=== PATIENT | female | born 1935 | race Caucasian/White ===

== ENCOUNTER 2016-05-15 14:02 | Observation (INO) | payer BC, MEDICARE ==
--- NOTE | 2016-05-15 15:00 | RAD ---
HISTORY: Expressive aphasia COMPARISONS: None TECHNIQUE: Multiple contiguous axial CT scans were obtained of the head without intravenous contrast. FINDINGS: HEMORRHAGE/INFARCT: There is no hemorrhage or acute infarct. MASSES/SHIFT: There is no mass or shift. EXTRA-AXIAL SPACES: There are no extra-axial fluid collections. SULCI AND VENTRICLES: The sulci and ventricles are normal in size and position for the patient's stated age. CEREBRUM: There is hypoattenuation of the periventricular and subcortical white matter. BRAINSTEM: There are no focal parenchymal abnormalities. CEREBELLUM: There is a chronic appearing lacunar infarct of the right cerebellar hemisphere VESSELS: The vessels are grossly normal. PARANASAL SINUSES: The paranasal sinuses are clear. ORBITS: The orbits are unremarkable. BONES AND SOFT TISSUE: No bone or soft tissue abnormalities are noted. OTHER: None IMPRESSION: NO ACUTE INTRACRANIAL PATHOLOGY. CHRONIC SMALL VESSEL ISCHEMIC CHANGES.
[2016-05-15 15:10] LABS: Hematocrit 40 % (35-47); Hemoglobin 13.2 g/dl (12.0-16.0); Mean Corpuscular HGB Conc 33 g/dl (31-36); Mean Corpuscular Hemoglobin 29 pg (27-31); Mean Corpuscular Volume 89 fL (80-97); Mean Platelet Volume 9 um3 (7.4-10.4); Red Blood Count 4.56 10^6/ul (4.0-5.4); Red Cell Distribution Width 14 % (10.5-15); White Blood Count 15.3 10^3/ul (3.5-10.8)
[2016-05-15 15:27] LABS: Troponin I 0.01 ng/mL (<0.04)
[2016-05-15 15:30] LABS: Albumin 3.9 g/dL (3.2-5.2); BUN/Creatinine Ratio 20.3 (8-20); Calcium 9.6 mg/dL (8.6-10.3); EGFR African American 49.1 (>60); EGFR Non-African American 38.2 (>60); Globulin 3.4 g/dL (2-4); Potassium 4.3 mmol/L (3.5-5.0); Total Bilirubin 0.3 mg/dL (0.2-1.0); Total Protein 7.3 g/dL (6.4-8.9)
[2016-05-15] MEDS ORDERED: Dextrose 50% Syringe 50 ML* 25 GM/50 ML SYRINGE IV PUSH PRN (17:23)
[2016-05-15] MEDS ORDERED: NS 0.9% 1000 ML* 1,000 ML IV SCH (17:30)
[2016-05-15 17:55] LABS: HDL Cholesterol 62.1 mg/dL
[2016-05-15] MEDS ORDERED: Latanoprost 0.005%* 2.5 ml BTL RIGHT EYE SCH (18:00)
[2016-05-15] MEDS: Clopidogrel TAB* 75 MG PO SCH (19:00)
--- NOTE | 2016-05-15 19:39 | RAD ---
INDICATION: Carotid stenosis. COMPARISON: There are no prior studies available for comparison. TECHNIQUE: Multiple grayscale, color and Doppler tracings of the common, internal and external carotid and vertebral arteries were obtained. Stenosis estimations reflect velocity criteria that it been correlated to angiographic stenosis calculations based on the distal internal carotid diameter. RIGHT CAROTID: There is mild hyperdense plaque within the right carotid bulb and proximal internal carotid artery. The peak systolic velocity in the proximal right internal carotid artery is 99 cm/s and the maximum end-diastolic velocity is 14 cm/s. The peak systolic velocity in the distal right common carotid artery is 99 cm/s and the maximum end-diastolic velocity is 14 cm/s. The internal to common carotid artery ratio is 1.0. This would be consistent with a less than 50% stenosis. LEFT CAROTID: There is mild hyperdense plaque within the left carotid bulb and proximal internal carotid artery. The peak systolic velocity in the proximal left internal carotid artery is 115 cm/s and the maximum end-diastolic velocity is 25 cm/s. The peak systolic velocity in the distal left common carotid artery is 91 cm/s and the maximum end-diastolic velocity is 14 cm/s. The internal to common carotid artery ratio is 1.3. This would be consistent with a less than 50% stenosis. VERTEBRALS: There is antegrade flow in both vertebral arteries. IMPRESSION: THERE IS MILD PLAQUE PRESENT BILATERALLY WITHIN THE PROXIMAL INTERNAL CAROTID ARTERIES. NO HEMODYNAMICALLY SIGNIFICANT STENOSIS IS PRESENT. CPT II Codes: 3100F
[2016-05-15] MEDS: Albuterol/Ipratropium NEB.SOL* Albuterol 2.5 MG/Ipratropium 0.5 MG 3 ML INH SCH (20:11)
[2016-05-15] MEDS ORDERED: Atorvastatin* 10 MG TAB PO SCH (21:00)
[2016-05-15] MEDS: Insulin LISPRO* 1 UNITS UNIT SUBCUT SCH (21:03)
[2016-05-15] MEDS: Heparin VIAL(*) 5000 UNITS/ML VIAL (FIVE THOUSAND) SUBCUT SCH (21:06)
--- NOTE | 2016-05-15 21:08 | ED ---
Donal Martin Erika, scribed for Mick Addison MD on 05/15/16 at 1453 . Neurological HPI - HPI Summary HPI Summary: Patient is an 81-year-old female presenting to the ED with a CC of impaired speech. Per patient and grandson, patient was completely at baseline at 11:30 today. Her grandson then left to go to the store, and pt reports she developed some slight dizziness around this time. Grandson then called pt around 12:11 because he could not remember which deodorant to buy. He asked pt to read the label on his deodorant at home, but patient was unable to - she states that she could see the letters, but was unable to say the words - she reports she felt very frustrated. Per grandson, patient was also slurring her speech. Around 12: 30, grandson returned home, and states patient was confused - he reports she said "I'm just so confused, I don't know what to do," and that she apologized for not being able to make him what he wanted her to make him, when he did not ask her to do anything. Patient was also called grandson by his mother's name. Grandson reports that pt's speech at this point was slow and slurred. Patient is now at baseline, per self and grandson. Grandson reports that symptoms lasted 45 minutes-1 hour, but the worst symptoms were shorter-lived. Patient denies any visual deficit or new facial droop. Grandson reports he is suspicious of a previous stroke because since a few years ago, pt has had a slight facial droop. Patient takes a daily aspirin, but denies other blood thinners. Hx HTN, diabetes (takes metformin BID), glaucoma. Patient is followed by Dr. Rodriguez. - History of Current Complaint Chief Complaint: EDNeurologicalDeficit Stated Complaint: STROKE LIKE SYMPTOMS Time Seen by Provider: 05/15/16 14:14 Hx Obtained From: Patient, Family/Sedimentationist - Grandson Onset/Duration: Gradual Onset, Started hours ago, Resolved Timing: Constant Onset Severity: Mild Current Severity: None Character: Impaired Speech, Confusion Alleviating: Spontanious Resolution - spontaneous TPA Considered: No - Additional Pertinent History Primary Care Physician: [id number] - Allergy/Home Medications Allergies/Adverse Reactions: Allergies Allergy/AdvReac Type Severity Reaction Status Date / Time No Known Allergies Allergy Verified 01/16/15 09:24 PMH/Surg Hx/FS Hx/Imm Hx Endocrine/Hematology History: Reports: Hx Diabetes Cardiovascular History: Reports: Hx Hypertension Respiratory History: Reports: Hx Chronic Obstructive Pulmonary Disease (COPD) GI History: Reports: Hx Gastroesophageal Reflux Disease Sensory History: Reports: Hx Contacts or Glasses, Hx Glaucoma Opthamlomology History: Reports: Hx Contacts or Glasses, Hx Glaucoma Neurological History: Reports: Hx Headaches, Hx Migraine - Surgical History Surgery Procedure, Year, and Place: APPENDECTOMY A CHILD, HYSTERECTOMY - Family History Known Family History: Positive: Cardiac Disease, Other - stroke - Social History Lives: With Family Alcohol Use: None Hx Substance Use: No Substance Use Type: Reports: None Hx Tobacco Use: Yes Smoking Status (MU): Former Smoker Review of Systems Negative: Fever Neurological: Other - dizziness, unable to say words, confusion - see HPI Positive: Slurred Speech All Other Systems Reviewed And Are Negative: Yes Physical Exam Triage Information Reviewed: Yes Vital Signs On Initial Exam: Initial Vital Signs Temp 97.4 F 05/15/16 14:15 Pulse 82 05/15/16 14:15 Resp 20 05/15/16 14:15 BP 149/52 05/15/16 14:15 Pulse Ox 97 05/15/16 14:15 Vital Signs Reviewed: Yes Appearance: Positive: Well-Appearing, No Pain Distress, Well-Nourished Skin: Positive: Warm, Skin Color Reflects Adequate Perfusion, Dry Head/Face: Positive: Normal Head/Face Inspection Eyes: Positive: Normal ENT: Positive: Normal ENT inspection Neck: Positive: Supple, Nontender Respiratory/Lung Sounds: Positive: Clear to Auscultation, Breath Sounds Present Cardiovascular: Positive: RRR Abdomen Description: Positive: Nontender, Soft Bowel Sounds: Positive: Present Musculoskeletal: Positive: Normal Neurological: Positive: Normal, Sensory/Motor Intact, Alert, Oriented to Person Place, Time, CN Intact II-III Psychiatric: Positive: Affect/Mood Appropriate Diagnostics - Vital Signs Vital Signs Temp Pulse Resp BP Pulse Ox 05/15/16 15:00 77 97 05/15/16 14:30 83 19 159/63 97 05/15/16 14:15 97.4 F 82 20 149/52 97 05/15/16 14:11 21 149/52 - Laboratory Lab Results: Lab Results 05/15/16 05/15/16 05/15/16 Range/Units 15:01 15:01 15:01 WBC 15.3 H (3.5-10.8) 10^3/ul RBC 4.56 (4.0-5.4) 10^6/ul Hgb 13.2 (12.0-16.0) g/dl Hct 40 (35-47) % MCV 89 (80-97) fL MCH 29 (27-31) pg MCHC 33 (31-36) g/dl RDW 14 (10.5-15) % Plt Count 205 (150-450) 10^3/ul MPV 9 (7.4-10.4) um3 Neut % (Auto) 77.3 (38-83) % Lymph % (Auto) 15.2 L (25-47) % Haakon % (Auto) 5.6 (1-9) % Eos % (Auto) 1.2 (0-6) % Baso % (Auto) 0.7 (0-2) % Absolute Neuts (auto) 11.9 H (1.5-7.7) 10^3/ul Absolute Lymphs (auto) 2.3 (1.0-4.8) 10^3/ul Absolute Monos (auto) 0.9 H (0-0.8) 10^3/ul Absolute Eos (auto) 0.2 (0-0.6) 10^3/ul Absolute Basos (auto) 0.1 (0-0.2) 10^3/ul Absolute Nucleated RBC 0 10^3/ul Nucleated RBC % 0 INR (Anticoag Therapy) 0.81 L (0.89-1.11) Sodium 134 (133-145) mmol/L Potassium 4.3 (3.5-5.0) mmol/L Chloride 103 (101-111) mmol/L Carbon Dioxide 26 (22-32) mmol/L Anion Gap 5 (2-11) mmol/L BUN 27 H (6-24) mg/dL Creatinine 1.33 H (0.51-0.95) mg/dL Est GFR ( Amer) 49.1 (>60) Est GFR (Non-Af Amer) 38.2 (>60) BUN/Creatinine Ratio 20.3 H (8-20) Glucose 162 H (70-100) mg/dL Lactic Acid (0.5-2.0) mmol/L Calcium 9.6 (8.6-10.3) mg/dL Total Bilirubin 0.30 (0.2-1.0) mg/dL AST 14 (13-39) U/L ALT 11 (7-52) U/L Alkaline Phosphatase 63 (34-104) U/L Troponin I 0.01 (<0.04) ng/mL Total Protein 7.3 (6.4-8.9) g/dL Albumin 3.9 (3.2-5.2) g/dL Globulin 3.4 (2-4) g/dL Albumin/Globulin Ratio 1.1 (1-3) Triglycerides 160 mg/dL Cholesterol 140 mg/dL LDL Cholesterol 46 mg/dL HDL Cholesterol 62.1 mg/dL 05/15/16 Range/Units 15:01 WBC (3.5-10.8) 10^3/ul RBC (4.0-5.4) 10^6/ul Hgb (12.0-16.0) g/dl Hct (35-47) % MCV (80-97) fL MCH (27-31) pg MCHC (31-36) g/dl RDW (10.5-15) % Plt Count (150-450) 10^3/ul MPV (7.4-10.4) um3 Neut % (Auto) (38-83) % Lymph % (Auto) (25-47) % Haakon % (Auto) (1-9) % Eos % (Auto) (0-6) % Baso % (Auto) (0-2) % Absolute Neuts (auto) (1.5-7.7) 10^3/ul Absolute Lymphs (auto) (1.0-4.8) 10^3/ul Absolute Monos (auto) (0-0.8) 10^3/ul Absolute Eos (auto) (0-0.6) 10^3/ul Absolute Basos (auto) (0-0.2) 10^3/ul Absolute Nucleated RBC 10^3/ul Nucleated RBC % INR (Anticoag Therapy) (0.89-1.11) Sodium (133-145) mmol/L Potassium (3.5-5.0) mmol/L Chloride (101-111) mmol/L Carbon Dioxide (22-32) mmol/L Anion Gap (2-11) mmol/L BUN (6-24) mg/dL Creatinine (0.51-0.95) mg/dL Est GFR ( Amer) (>60) Est GFR (Non-Af Amer) (>60) BUN/Creatinine Ratio (8-20) Glucose (70-100) mg/dL Lactic Acid 3.4 H* (0.5-2.0) mmol/L Calcium (8.6-10.3) mg/dL Total Bilirubin (0.2-1.0) mg/dL AST (13-39) U/L ALT (7-52) U/L Alkaline Phosphatase (34-104) U/L Troponin I (<0.04) ng/mL Total Protein (6.4-8.9) g/dL Albumin (3.2-5.2) g/dL Globulin (2-4) g/dL Albumin/Globulin Ratio (1-3) Triglycerides mg/dL Cholesterol mg/dL LDL Cholesterol mg/dL HDL Cholesterol mg/dL Result Diagrams: 05/15/16 15:01 05/15/16 15:01 Lab Statement: Any lab studies that have been ordered have been reviewed, and results considered in the medical decision making process. - CT Brain CT CT Interpretation Completed By: Radiologist - IMPRESSION: NO ACUTE INTRACRANIAL PATHOLOGY. CHRONIC SMALL VESSEL ISCHEMIC CHANGES. - EKG 14:36 Cardiac Rate: NL - at 78 bpm EKG Rhythm: Sinus Rhythm EKG Interpretation: Non-specific changes to the lateral leads. EKG Comparison: No Significant Change - from 01/16/2017 NIH Scale - NIH Scale Level of Consciousness: Alert/Keenly Responsive Ask Patient the Month and His/Her Age: Both Correct Ask Pt to Open/Close Eyes and Faucet Polisher/Release Non-Paretic Hand: Both Correctly Best Gaze (Only Horizontal Eye Movement): Normal Visual Field Testing: No Visual Loss Facial Paresis-Pt to Smile & Close Eyes or Grimace Symmetry: Normal/Symmetrical Motor Function - Right Arm: No Drift-Holds 10 Seconds Motor Function - Left Arm: No Drift-Holds 10 Seconds Motor Function - Right Leg: No Drift-Holds 10 Seconds Motor Function - Left Leg: No Drift-Holds 10 Seconds Limb Ataxia-Must be out of Proportion to Weakness Present: Absent Sensory (Use Pinprick to Test Arms/Legs/Trunk/Face): Normal Best Language (Describe Picture, Name Items): No Aphasia Dysarthria (Read Several Words): Normal Extinction and Inattention: No Abnormality Total Score: 0 Re-Evaluation - Re-Evaluation First Eval Re-Evaluation Time: 16:33 Comment: Discussed lab results, imaging results, and recommendation for admission. Patient agrees to admission Course/Dx - Diagnoses Provider Diagnoses: TIA (transient ischemic attack) - Physician Notifications Discussed Care of Patient With: Dr. Breaux (hospitalist) at 15:38 - agrees to admit Discharge - Discharge Plan Condition: Stable Disposition: ADMITTED TO [facility] documentation as recorded by the Donal west Erika accurately reflects the service I personally performed and the decisions made by me, Mick Addison MD.
[2016-05-15 21:25] LABS: HDL Cholesterol 57.8 mg/dL
--- NOTE | 2016-05-15 22:03 | HP ---
HISTORY AND PHYSICAL: DATE OF ADMISSION: 05/15/16 PRIMARY CARE PROVIDER: Marquise Rodriguez MD CHIEF COMPLAINT: Transient problem with speech. HISTORY OF PRESENT ILLNESS: Rylee Méndez is an 81-year-old female with a history of dyslipidemia, diabetes, COPD, and obstructive sleep apnea who presents to [facility] after her grandson, whom she lives with, heard her on the phone that she is unable to speak out certain words. The patient stated that she was on the phone today with her grandson when she was trying to read out the name of the order and that she asked him to buy. All of a sudden, she was unable to do so and it lasted seconds. It resolved by the time she presented to the emergency department for evaluation. At baseline, she has problems with unsteady gait and she uses walker for walking. She has no symptoms at this point. In addition, the patient noted that she had bouts of diarrhea in the morning, but denied abdominal pain. The patient is going to be placed on observation with a diagnosis of most likely TIA. PAST MEDICAL HISTORY: 1. Diabetes type 2. 2. Dyslipidemia. 3. Question of COPD, on home oxygen at night. It is possible that the patient also has obstructive sleep apnea. MEDICATIONS: Include: 1. Latanoprost eye drops 1 drop to the right eye at night. 2. Zoloft 50 mg daily. 3. Metformin 500 mg 3 times a day. 4. Lovastatin 20 mg daily. 5. Aspirin 81 mg daily. 6. DuoNeb up to 4 times a day p.r.n. ALLERGIES: No known drug allergies. FAMILY HISTORY: Both parents of "old age." SOCIAL HISTORY: The patient has a history of [id number] smoking and she quit 3 years ago. She denies any alcohol or drug use. She is retired and lives with her grandson. Her health care proxy is her daughter, Izabella. REVIEW OF SYSTEMS: Please see history of present illness. Positive for recent diarrhea, but no abdominal pain as above mentioned. The patient stated that she usually had some dyspnea on exertion and that is due to her COPD. She uses oxygen at night. She has chronically unsteady gait and uses a walker. Today, when the episode happened, when she could not talk, she was on the phone with her grandson for several seconds. She denies any headache or blurry vision or one-sided weakness when the episode occurred. All the remaining 14 systems were reviewed with the patient and were otherwise negative. PHYSICAL EXAMINATION GENERAL: The patient is a very pleasant 81-year-old obese female, who is in no acute distress. Alert, awake, and oriented x3. VITAL SIGNS: Blood pressure of 159/53, heart rate of 67 and regular, respiratory rate 16, oxygen saturation 97% on room air, and temperature of 97.4. HEENT: Head is atraumatic, normocephalic. Eyes: Pupils equal, reactive to light and accommodation. Oropharynx clear. Mucosa moist. Very poor dentition. NECK: Supple. No JVD. No bruit bilaterally. RESPIRATORY: Clear to auscultation bilaterally. CARDIOVASCULAR: Regular rate and rhythm. No murmur. ABDOMEN: Soft, nontender. Bowel sounds present in all 4 quadrants. EXTREMITIES: Trace pedal edema bilaterally. Pulses are present bilaterally. There is no clubbing or cyanosis. NEUROLOGIC: Speech clear. Cranial nerves II through XII grossly intact. Motor strength is 5/5 bilaterally. PSYCHIATRIC EVALUATION: Pleasant and cooperative with evaluation with no evidence of anxiety or depression. LABORATORY DATA AND STUDIES PERFORMED DURING THE HOSPITAL STAY: Included EKG which showed normal sinus rhythm with heart rate of 78 beats per minute with negative T- waves in leads V4 to V6. Comparing with an EKG from 2015, those changes are the same. The patient's CT of the brain, impression: "No acute intracranial pathology, chronic small vessel ischemic changes." White blood cell count of 15.2, hemoglobin of 13.2, hematocrit of 40, and platelets 225. Sodium of 134, potassium 4.3, chloride 103, carbon dioxide 26, BUN 27, creatinine 1.33, and lactic acid of 3.4. Liver functions were unremarkable. Troponin of 0.01. ASSESSMENT AND PLAN: In regards to the patient's transient episode of inability to speak, it is possible that the patient had a syncopal or near syncopal with transient hypoperfusion. It is also possible that she had a transient ischemic attack per se. She appears mildly dehydrated and she did have a couple of episodes of diarrhea in the morning. At this point, the patient is going to be switched from aspirin to Plavix. We will place her on telemetry monitored bed for observation. Carotid Dopplers are going to be obtained. Dr. Lee is going to evaluate the patient from Neurology. In regards to the patient's dehydration and acute renal failure, due to that, the patient is going to be placed on intravenous hydration. The patient most likely had a bout of gastroenteritis. Currently, has no complaints. In regards to dyslipidemia, the patient's lovastatin is going to be substituted in the hospital with atorvastatin. Fasting lipid profile is going to be obtained in the morning. In regards to diabetes, the patient's Glucophage is going to be held while in the hospital. The patient is going to be placed on lispro sliding scale. In regards to DVT prophylaxis, the patient is going to be placed on heparin subcutaneously. The patient's chronic obstructive pulmonary disease exacerbation. DuoNebs are going to be provided on a scheduled basis as the patient takes at home. In regards to the patient's code status, the patient's code status is full. TIME SPENT: Approximately 65 minutes was spent on admission of this patient, more than half that time was spent [id number] with the patient during the interview and physical exam. CC: Dr. Rodriguez; Dr. Gomez; Dr. Lee* [id number]/[facility] #: [id number] MTDEmmanuel
[2016-05-15 22:59] LABS: Urine Bacteria 3+ (Absent); Urine Bilirubin Negative (Negative); Urine Glucose 1+(50 mg/dL) (Negative); Urine Nitrite Positive (Negative)
[2016-05-16 05:49] LABS: Hematocrit 39 % (35-47); Hemoglobin 12.6 g/dl (12.0-16.0); Mean Corpuscular HGB Conc 33 g/dl (31-36); Mean Corpuscular Hemoglobin 29 pg (27-31); Mean Corpuscular Volume 89 fL (80-97); Mean Platelet Volume 10 um3 (7.4-10.4); Red Blood Count 4.33 10^6/ul (4.0-5.4); Red Cell Distribution Width 14 % (10.5-15); White Blood Count 9.8 10^3/ul (3.5-10.8)
[2016-05-16] MEDS: Heparin VIAL(*) 5000 UNITS/ML VIAL (FIVE THOUSAND) SUBCUT SCH ×2 (06:12→13:46)
[2016-05-16] MEDS: Acetaminophen TAB* 325 MG PO PRN ×2 (06:27→13:46)
[2016-05-16 07:52] LABS: BUN/Creatinine Ratio 23.1 (8-20); Blood Urea Nitrogen 24 mg/dL (6-24); CO2 Carbon Dioxide 20 mmol/L (22-32); Calcium 9.1 mg/dL (8.6-10.3); Chloride 107 mmol/L (101-111); EGFR African American 65.2 (>60); EGFR Non-African American 50.7 (>60); Glucose 102 mg/dL (70-100); Sodium 137 mmol/L (133-145)
[2016-05-16] MEDS: Clopidogrel TAB* 75 MG PO SCH (08:15)
[2016-05-16] MEDS: Insulin LISPRO* 1 UNITS UNIT SUBCUT SCH ×2 (08:15→12:50)
[2016-05-16] MEDS: Albuterol/Ipratropium NEB.SOL* Albuterol 2.5 MG/Ipratropium 0.5 MG 3 ML INH SCH ×2 (08:45→14:28)
[2016-05-16] MEDS ORDERED: Sertraline* 50 MG TAB PO SCH (09:00)
--- NOTE | 2016-05-16 11:01 | RAD ---
HISTORY: Aphasia, TIA COMPARISONS: Head CT dated May 15, 2016 TECHNIQUE: The following sequences were obtained of the head: Sagittal T1-weighted images, axial T2-weighted images, axial FLAIR images, axial susceptibility weighted images, axial T1-weighted images. Additionally, axial diffusion-weighted images were obtained with calculated apparent diffusion coefficients. FINDINGS: HEMORRHAGE/INFARCT: There is no hemorrhage or acute infarct. MASSES/SHIFT: There is no mass or shift. EXTRA-AXIAL SPACES/MENINGES: There are no extra-axial fluid collections. SULCI AND VENTRICLES: There is diffuse and proportional enlargement of the sulci and ventricles. CEREBRUM: There are multiple scattered small foci of elevated T2/FLAIR signal within the periventricular and subcortical white matter. BRAINSTEM: There are no focal parenchymal abnormalities. CEREBELLUM: There are chronic appearing lacunar infarcts of the right inferior cerebellum The cerebellar tonsils are normal in size and position. SELLA: The sella is normal. PINEAL: The pineal region is clear. CP ANGLE/TEMPORAL BONES: The labyrinthine structures are grossly normal. VESSELS: Normal flow-voids are noted within the visualized vertebral vasculature. DIFFUSION ABNORMALITIES: There are no diffusion abnormalities. PARANASAL SINUSES/MASTOIDS: The paranasal sinuses are clear. ORBITS: The orbits are unremarkable. BONES AND SOFT TISSUE: No bone or soft tissue abnormalities are noted. OTHER: None IMPRESSION: 1. DIFFUSE INVOLUTIONAL CHANGE. 2. 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 OVERALL, THE APPEARANCE IS SUGGESTIVE CHRONIC SMALL VESSEL ISCHEMIA. 3. NO RESTRICTED DIFFUSION TO SUGGEST ACUTE INFARCT.
--- NOTE | 2016-05-16 12:28 | CONS ---
CONSULTATION NOTE: DATE OF CONSULTATION: DATE OF DICTATION: 05/16/16 PATIENT OF: Dr. Rodriguez and Dr. Breaux. HISTORY: This is an 81-year-old woman who we are asked to evaluate for possible TIA. She is right handed. Yesterday she had an episode of upset stomach and a little bit of diarrhea. However, this had passed and she was on the phone with her grandson when she was trying to tell him about a particular type of deodorant. She had trouble reading the label and then had trouble with word finding and speaking. This whole episode lasted 5 or 10 minutes. The relative came home promptly and also had called an ambulance and the symptoms were gone by the time she presented to the ER and even before; it states in the admission note it lasted seconds but from what she said, it was more like 5 to 10 minutes. She has had other neurological problems. She has had some progressive unsteady gait and uses a walker. She has also noted some problems with her memory, which she attributes to old age. She has a history of diabetes type 2, dyslipidemia, COPD, on home oxygen at night. MEDICATIONS: She was on: 1. Aspirin 81 mg daily on presentation. 2. Lovastatin 20 mg daily. 3. Metformin 500 t.i.d. 4. Zoloft 50 mg daily. 5. She gets DuoNeb 4 times a day p.r.n. 6. Latanoprost eye drops, 1 drop to the eye, right eye. ALLERGIES: She has no known allergies. FAMILY HISTORY: Both parents of old age, but the father had a history of stroke. She has had a [id number] history of smoking and quit 3 years ago. She does not drink or use drugs. She is retired and lives with her grandson. REVIEW OF SYSTEMS: Negative for all 14 spheres other than the HPI. PHYSICAL EXAM: Temperature is 97.6, pulse 63, respirations 20, blood pressure 134/48 and her blood pressure on prior admission in January 2015 had a number of readings of 136/52. She is alert with normal speech and comprehension. Sentences were fluent. She had no word finding difficulty. She had no naming or repetition problems. Cranial nerves II through XII were intact other than she had a mild facial asymmetry with left side looking slightly diminished, both at the mouth and around the eye. Strength was 5/5, but she had a slight left pronator drift. Tone was normal, but she had fine essential tremor in both arms and in her head. She also had a wide based gait needing assistance and she has a positive Romberg. Reflexes were 1 with trace ankle jerks. Toes were equivocal to downgoing. Sensation was intact to light touch. DIAGNOSTIC STUDIES/LAB DATA: Her MRI scan was reviewed and showed diffuse atrophy and significant white matter disease. There was no evidence to my eye of acute stroke. Has not been read by the radiologist yet. Her carotid Doppler showed mild plaque but no clear stenosis. CT scan of her brain showed chronic small vessel ischemic changes. Her labs included initially BUN 27, creatinine 1.3; now 24 and 1.04. Lactic acid was originally 3.4. Rest of the CMP was normal and she has an LDL of 53 today. INR is 0.81. White count today 9.8, hematocrit 39, platelets normal. UA have 3+ bacteria, positive nitrites. IMPRESSION: I think Rylee had a transient ischemic attack yesterday consisting about 10 minutes or so of naming difficulties and nonfluent speech, sounds like an expressive aphasia. This occurs in the setting of someone who has diffuse significant small vessel ischemic disease. Perhaps on the basis of her past history of smoking, diabetes, and dyslipidemia, which is now adequately treated, I am concerned that her memory is poor possibly on the basis of a vascular dementia. She also has evidence of significant peripheral neuropathy on exam and I have taken the liberty of ordering B12, folate, and thyroid. Changing her aspirin to Plavix as a reasonable treatment plan. The one further question I have is what her risk for atrial fibrillation is, no echo was ordered. I am going to speak to the hospitalist about whether she has had a recent echo as an outpatient, what they showed. There was a left atrial dilatation on an echo back in 2014. If she has had significant risk for atrial fibrillation, we may want to pursue with a Holter monitor if she had atrial fibrillation documented and we would consider anticoagulation. The problem is that she is not the best candidate for anticoagulation given her gait disturbance and also her memory, we would need to make sure that she was safe before we actually decided whether she should get anticoagulation if she had atrial fibrillation. Thank you for sharing her case. [id number]/[facility] #: [id number] JOS
[2016-05-16 14:52] VITALS: BP 125/61
--- NOTE | 2016-05-16 14:57 | ECHO ---
Patient: TANO TORRES [facility] Rec#: [id number] : 1935 Date: 05/16/2016 Age: 81y Height: 165.1 cm / 65.0 in Weight: 79.38 kg / 175.0 lbs Sex: F BSA: 1.87 Room#: [facility] Admit Date#: 05/15/2016 Type: Inpatient Referring: Amira Breaux MD Reading: Ulices Thibodeaux MD [employer] Operator: Tristin Garrison RDCS Transthoracic Echocardiogram Indication: TIA BP: 134/48 HR: 61 Rhythm: NSR Findings History: DM,HTN,COPD,GERD,smoker Technical Comments: The study is technically difficult. The study is technically limited due to poor apical windows. The study is technically limited due to patient body habitus. The study is technically limited due to the patient's history of COPD. The study is technically limited due to the patient's smoking history. The study was technically limited due to the patient's inability to lay in the left lateral decubitus position. Left Ventricle: The left ventricular chamber size is normal. Global left ventricular wall motion and contractility are within normal limits. There is normal left ventricular systolic function. The estimated ejection fraction is 55-60%. Abnormal left ventricular diastolic filling is observed, consistent with impaired relaxation. The absence of left atrial enlargement suggests these findings are not of a chronic nature and may not have clinical significance. Left Atrium: The left atrial chamber size is normal. Right Atrium: The right atrial cavity size is normal. Interatrial septum appears intact without evidence of shunting. As best as can be imaged with stated limitations. The bubble study is negative. Aortic Valve: The aortic valve structure is not well visualized. There is no evidence of aortic regurgitation. There is no evidence of aortic stenosis. Mitral Valve: The mitral valve leaflets appear normal. There is no evidence of mitral regurgitation. There is no evidence of mitral stenosis. Tricuspid Valve: The tricuspid valve appears normal in structure and function. There is no evidence of tricuspid valve regurgitation. Pulmonic Valve: The pulmonic valve structure is not well visualized. Aorta: There is no dilatation of the ascending aorta. There is no dilatation of the aortic arch. There is no dilation of the aortic root. Pulmonary Artery: The main pulmonary artery is not well visualized. Venous: The inferior vena cava appears normal in size. There is a greater than 50% respiratory change in the inferior vena cava dimension. Contrast: Normal saline was used as contrast for the bubble study. Image [id number]. Conclusions The study is technically difficult with suboptimal images for interrogation. The study is technically limited due to the patient's history of COPD. The study was technically limited due to the patient's inability to lay in the left lateral decubitus position. Global left ventricular wall motion and contractility are within normal limits. The estimated ejection fraction is 55-60%. No significant valvular disease as can be best assessed with limited imaging quality. Interatrial septum appears intact without evidence of shunting. As best as can be imaged with stated limitations. If a more defintive evaluation is warranted by clinical correlation suggest GENNY. Measurements Name Value Normal Range RVIDd (AP) 2D 2.3 cm (0.9 - 2.6) RVDdMajor (2D) 1.3 cm (2.2 - 4.4) RAd ISD 4CH 3.6 cm (3.4 - 4.9) RA (A4C)W 1.8 cm (2.9 - 4.6) IVSd (2D) 1 cm (0.6 - 1) LVPWd (2D) 1 cm (0.6 - 1) LVIDd (2D) 3.7 cm (3.6 - 5.4) LVIDs (2D) 2.7 cm - LV FS (2D) 25 % (25 - 45) Aortic Annulus 1.8 cm (1.4 - 2.6) Ao root diameter (2D) 2.5 cm (2.1 - 3.5) Ascending Ao 2.3 cm (2.1 - 3.4) Aortic arch 1.6 cm (1.8 - 3.4) LA dimension (AP) 2D 3.3 cm (2.3 - 3.8) LAd ISD 4CH 4.3 cm (2.9 - 5.3) LA ISD 4CH W 2.2 cm (2.5 - 4.5) Name Value Normal Range LA ESV SP 4CH (A/L) 35.83 ml - LA ESV SP 4CH (MOD) 34.33 ml - Name Value Normal Range MV E-wave Vmax 0.78 m/sec - MV deceleration time 183 msec - MV A-wave Vmax 0.96 m/sec - MV E:A ratio 0.8 ratio - LV septal e' Vmax 0.09 m/sec - LV lateral e' Vmax 0.07 m/sec - LV E:e' septal ratio 8.6 ratio - LV E:e' lateral ratio 11.1 ratio - Name Value Normal Range AV Vmax 1.25 m/sec - AV peak gradient 6.48 mmHg - LVOT diameter 1.69 cm - LVOT Vmax 0.9 m/sec - LVOT VTI 18.82 cm - LVOT peak gradient 3.27 mmHg - LVOT mean gradient 1.75 mmHg - SV LVOT 42.33 ml - ADOLPH (continuity Vmax) 1.62 cm2 - Name Value Normal Range IVC diameter 1.7 cm -
--- NOTE | 2016-05-16 15:21 | PN ---
Subjective Date of Service: 05/16/16 Interval History: Ms. Méndez denies complaint and is eager for discharge today. She specifically denies weakness, vision changes or difficulty speaking. She denies chest pain, SOB, nausea, or abdominal pain. Objective Active Medications: Acetaminophen (Tylenol Tab*) 650 mg PO Q4H PRN Albuterol/Ipratropium (Duoneb (Albuterol 2.5 Mg/Ipratropium 0.5 Mg)) 1 neb INH TID MALA Atorvastatin Calcium (Lipitor*) 10 mg PO BEDTIME MALA Clopidogrel Bisulfate (Plavix Tab*) 75 mg PO DAILY [facility] Dextrose (D50w Syringe 50 Ml*) 12.5 gm IV PUSH .FOR FS < 60 - SS PRN Heparin Sodium (Porcine) (Heparin Vial(*)) 5,000 units SUBCUT Q8HR [facility] Sodium Chloride (Ns 0.9% 1000 Ml*) 1,000 mls @ 100 mls/hr IV PER RATE [facility] Insulin Human Lispro (Humalog*) 0 units SUBCUT ACHS MALA Latanoprost (Xalatan 0.005%*) 1 drop RIGHT EYE QPM [facility] Sertraline HCl (Zoloft*) 50 mg PO DAILY [facility] Vital Signs 05/15/16 05/15/16 05/15/16 16:00 17:00 17:51 Temperature 97.4 F Pulse Rate 67 67 72 Respiratory 15 Rate Blood Pressure 163/61 (mmHg) O2 Sat by Pulse 97 97 100 Oximetry 05/15/16 05/15/16 05/15/16 18:00 19:39 20:11 Temperature 98.0 F Pulse Rate 70 66 Respiratory 15 Rate Blood Pressure 162/58 (mmHg) O2 Sat by Pulse 100 97 Oximetry 05/15/16 05/16/16 05/16/16 23:40 03:37 06:27 Temperature 97.7 F 97.6 F Pulse Rate 61 62 Respiratory 16 20 18 Rate Blood Pressure 138/51 134/48 (mmHg) O2 Sat by Pulse 98 99 Oximetry 05/16/16 05/16/16 05/16/16 07:48 08:47 11:31 Temperature 98.2 F 97.4 F Pulse Rate 58 62 72 Respiratory 20 16 20 Rate Blood Pressure 133/55 125/61 (mmHg) O2 Sat by Pulse 98 96 98 Oximetry Oxygen Devices in Use Now: None Appearance: Female sitting up in chair in NAD Respiratory: Symmetrical Chest Expansion and Respiratory Effort, Clear to Auscultation Cardiovascular: NL Sounds; No Murmurs; No JVD, No Edema Abdominal: NL Sounds; No Tenderness; No Distention Extremities: No Edema Skin: No Rash or Ulcers Neurological: Alert and Oriented x 3, NL Muscle Strength and Tone Nutrition: Taking PO's Result Diagrams: 05/16/16 05:07 05/16/16 11:30 Additional Lab and Data: Lab Results 05/15/16 05/15/16 05/15/16 Range/Units 15:01 15:01 15:01 WBC 15.3 H (3.5-10.8) 10^3/ul RBC 4.56 (4.0-5.4) 10^6/ul Hgb 13.2 (12.0-16.0) g/dl Hct 40 (35-47) % MCV 89 (80-97) fL MCH 29 (27-31) pg MCHC 33 (31-36) g/dl RDW 14 (10.5-15) % Plt Count 205 (150-450) 10^3/ul MPV 9 (7.4-10.4) um3 Neut % (Auto) 77.3 (38-83) % Lymph % (Auto) 15.2 L (25-47) % [place] % (Auto) 5.6 (1-9) % Eos % (Auto) 1.2 (0-6) % Baso % (Auto) 0.7 (0-2) % Absolute Neuts (auto) 11.9 H (1.5-7.7) 10^3/ul Absolute Lymphs (auto) 2.3 (1.0-4.8) 10^3/ul Absolute Monos (auto) 0.9 H (0-0.8) 10^3/ul Absolute Eos (auto) 0.2 (0-0.6) 10^3/ul Absolute Basos (auto) 0.1 (0-0.2) 10^3/ul Absolute Nucleated RBC 0 10^3/ul Nucleated RBC % 0 INR (Anticoag Therapy) 0.81 L (0.89-1.11) Sodium 134 (133-145) mmol/L Potassium 4.3 (3.5-5.0) mmol/L Chloride 103 (101-111) mmol/L Carbon Dioxide 26 (22-32) mmol/L Anion Gap 5 (2-11) mmol/L BUN 27 H (6-24) mg/dL Creatinine 1.33 H (0.51-0.95) mg/dL Est GFR ( Amer) 49.1 (>60) Est GFR (Non-Af Amer) 38.2 (>60) BUN/Creatinine Ratio 20.3 H (8-20) Glucose 162 H (70-100) mg/dL Lactic Acid (0.5-2.0) mmol/L Calcium 9.6 (8.6-10.3) mg/dL Total Bilirubin 0.30 (0.2-1.0) mg/dL AST 14 (13-39) U/L ALT 11 (7-52) U/L Alkaline Phosphatase 63 (34-104) U/L Troponin I 0.01 (<0.04) ng/mL Total Protein 7.3 (6.4-8.9) g/dL Albumin 3.9 (3.2-5.2) g/dL Globulin 3.4 (2-4) g/dL Albumin/Globulin Ratio 1.1 (1-3) Triglycerides 160 mg/dL Cholesterol 140 mg/dL LDL Cholesterol 46 mg/dL HDL Cholesterol 62.1 mg/dL 05/15/16 Range/Units 15:01 WBC (3.5-10.8) 10^3/ul RBC (4.0-5.4) 10^6/ul Hgb (12.0-16.0) g/dl Hct (35-47) % MCV (80-97) fL MCH (27-31) pg MCHC (31-36) g/dl RDW (10.5-15) % Plt Count (150-450) 10^3/ul MPV (7.4-10.4) um3 Neut % (Auto) (38-83) % Lymph % (Auto) (25-47) % [place] % (Auto) (1-9) % Eos % (Auto) (0-6) % Baso % (Auto) (0-2) % Absolute Neuts (auto) (1.5-7.7) 10^3/ul Absolute Lymphs (auto) (1.0-4.8) 10^3/ul Absolute Monos (auto) (0-0.8) 10^3/ul Absolute Eos (auto) (0-0.6) 10^3/ul Absolute Basos (auto) (0-0.2) 10^3/ul Absolute Nucleated RBC 10^3/ul Nucleated RBC % INR (Anticoag Therapy) (0.89-1.11) Sodium (133-145) mmol/L Potassium (3.5-5.0) mmol/L Chloride (101-111) mmol/L Carbon Dioxide (22-32) mmol/L Anion Gap (2-11) mmol/L BUN (6-24) mg/dL Creatinine (0.51-0.95) mg/dL Est GFR ( Amer) (>60) Est GFR (Non-Af Amer) (>60) BUN/Creatinine Ratio (8-20) Glucose (70-100) mg/dL Lactic Acid 3.4 H* (0.5-2.0) mmol/L Calcium (8.6-10.3) mg/dL Total Bilirubin (0.2-1.0) mg/dL AST (13-39) U/L ALT (7-52) U/L Alkaline Phosphatase (34-104) U/L Troponin I (<0.04) ng/mL Total Protein (6.4-8.9) g/dL Albumin (3.2-5.2) g/dL Globulin (2-4) g/dL Albumin/Globulin Ratio (1-3) Triglycerides mg/dL Cholesterol mg/dL LDL Cholesterol mg/dL HDL Cholesterol mg/dL Assess/Plan/Problems-Billing Assessment: Ms. Méndez is an 81 yo female with a PMH of diabetes and HLD who was admitted on 05/15/16 with concern for difficulty speaking and TIA. - Patient Problems (1) TIA (transient ischemic attack) Comment: No further symptoms since admission. Appreciate consultation from neurology. MRI with concern for chronic small vessel ischemia and involutional change only. Suspect TIA secondary to atherosclerosis. No evidence of afib, patient reports wearing holter monitor in past with no evidence of afib, follows with Dr. Gomez. Echo shows an intact EF with no significant valvular abnormalities, PFO or evidence of atrial dilatation. Patient to follow up with Dr. Gomez. Aspirin switched to plavix. Continue to purse good BG control with hx of diabetes. SBP 130-160. Plan to start low dose lisinopril and to have patient follow closely with PCP. Continue statin, lipids well controlled. (2) Diabetes type 2, controlled Comment: Continue metformin, HgbA1c pending. (3) Dementia Comment: Dr. Lee recommends that patient follow up with him outpatient for further testing for possible vascular dementia. (4) Peripheral neuropathy Comment: Contributing to gait instability. Rosa recommended TSH, VIT B12, and Folate, pending. (5) DVT (deep venous thrombosis)
[2016-05-16 16:15] LABS: TSH (Thyroid Stimulating Horm) 0.81 mcIU/mL (0.34-5.60)
[2016-05-16 16:28] LABS: Folate 9.27 ng/mL (>3.99)
[2016-05-16 16:29] LABS: Vitamin B12 142 pg/mL (180-914)
--- NOTE | 2016-05-17 05:45 | DS ---
DISCHARGE SUMMARY: DATE OF ADMISSION: 05/15/16 DATE OF DISCHARGE: 05/16/16 ATTENDING PHYSICIAN: Eliezer Villareal MD *(dictation provided by Birgit Matta NP ). PRIMARY DIAGNOSIS: Transient ischemic attack. SECONDARY DIAGNOSES: 1. Type 2 diabetes, non-insulin dependent. 2. Hyperlipidemia. 3. Question of chronic obstructive pulmonary disease versus obstructive sleep apnea. MEDICATIONS: At the time of discharge are: 1. Plavix 75 mg p.o. daily. 2. Lisinopril 2.5 mg p.o. daily. 3. Latanoprost eye drops one drop to the right eye at night. 4. Zoloft 50 mg daily, metformin 500 mg 3 times daily. 5. Lovastatin 20 mg daily. 6. DuoNebs as needed. 7. Hold aspirin. HOSPITAL COURSE: Ms. Méndez is an 81-year-old female presented to the emergency room on 05/16/15 with concern for problems with her speech. Per the report, the patient was unable to speak certain words for several seconds up to 10 minutes. The patient had a CT of the brain, which showed no acute intracranial pathology. She was admitted to the hospital out of concern for transient ischemic attack. Ms. Méndez has had no further symptoms of expressive aphasia. She did go on for an EKG which showed no evidence for ischemia. She had a carotid Doppler study which showed "mild plaque present bilaterally within the proximal internal carotid arteries. No hemodynamically significant stenosis is present." She also had a transthoracic echocardiogram which showed "the study is technically difficult with suboptimal images for interrogation. Global left ventricular wall motion and contractility are within normal limits. Estimated ejection fraction is 55% to 60%. No significant valvular disease as can be best assessed with limited imaging and quality. 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 The appearance is suggestive of chronic small vessel ischemia, no restricted diffusion to suggest acute infarct." Ms. Méndez was seen in consultation by Dr. Andrzej Lee from Neurology. I will refer you to his note for complete details. In brief, based on the imaging study and the patient's symptoms, the suggestion is that the patient did in fact have a transient ischemic attack. It is summarized that her TIA was secondary to atherosclerosis. The patient states that she has been worked up for atrial fibrillation in the past, including having Holter monitoring at home. She states that she was never found to be in atrial fibrillation and she reports following closely with Dr. Gomez and plans to do so per routine in the next 4 to 6 weeks. In terms of treatment plan, the patient will be switched from aspirin to Plavix. We will continue to try to control her blood glucose as well. Her hemoglobin A1c is pending as of the time of discharge. Her lipids are well controlled on her current statin. Her blood pressure has been slightly elevated with the systolic running in the 130s to 160s while in the hospital, and I have started her on low- dose lisinopril at 2.5 mg p.o. daily. Ms. Méndez is medically stable for discharge to home, to follow up with Dr. Rodriguez , especially given the new medications of Plavix and lisinopril. Dr. Lee has also offered to follow up with the patient regarding further testing for dementia. DISPOSITION: Home. DIET: Consistent carbohydrate, low salt. ACTIVITY: As tolerated. FOLLOWUP: 1. Please follow up with Dr. Rodriguez. An appointment has been made for 05/22/16. 2. Please follow up with Dr. Lee. Please call for an appointment in the next 1 to 2 months regarding further evaluation for dementia. TIME SPENT: Approximately 60 minutes were spent in the discharge of this patient, more than half the time spent with the patient at the bedside reviewing the events leading up to this hospitalization, performing the physical examination, reviewing the plan of care. BIRGIT MATTA NP CC: Dr. Rodriguez* [id number]/[facility] #: [id number] JOS
== END 2016-05-16 16:41 | disposition home or self-care (01) ==
LOC: ED 14:02 → MEDTELE 15:39
PROVIDERS: ADMIT Internal Medicine; ATTEND Internal Medicine
DX: G45.9 Transient cerebral ischemic attack, unspecified (principal); E11.8 Type 2 diabetes mellitus with unspecified complications; E78.5 Hyperlipidemia, unspecified; E86.0 Dehydration; J44.9 Chronic obstructive pulmonary disease, unspecified; Z87.891 Personal history of nicotine dependence; Z79.84 Long term (current) use of oral hypoglycemic drugs; Z79.82 Long term (current) use of aspirin
CPT/HCPCS: 36415; 70450; 70551; 80048; 80053; 80061; 81003; 81015; 82607; 82746; 83036; 83605; 84443; 84484; 85025; 85610; 87077; 87086; 87186; 93005; 93306; 93880; 94640; 94760; 99285; A9270-GY; G0378; G8978-GP-CI; G8979-GP-CI; G8980-GP-CI; J1644

== ENCOUNTER 2016-06-13 18:26 | Emergency (ER) | payer MEDICARE, BC ==
--- NOTE | 2016-06-13 19:37 | ED ---
sarah Martin Timothy, scribed for Andrzej Leary MD on 06/13/16 at 1922 . HPI Chest Pain - HPI Summary HPI Summary: Rylee Méndez is an 81 yo female presenting to [facility] with constant 8/10 pain under her right rib. Pt denies any trauma, and states that the pain has been constant for the past 4 days. Eating has not aggravated or alleviated the pain, though she has experienced nausea today. 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 Her MHx includes palpitations, HTN, HLD, migraine, COPD, GERD, renal calculi, arthritis, DM, depression, anxiety, and tobacco use. Her PCP is Dr. Rodriguez. - History of Current Complaint Chief Complaint: EDGeneral Time Seen by Provider: 06/13/16 19:26 Hx Obtained From: Patient Onset/Duration: Started Days Ago, Still Present Timing: Constant Initial Severity: Moderate Current Severity: Moderate Pain Intensity: 8 Pain Scale Used: 0-10 Numeric Chest Pain Location: Discrete at: - under right rib Chest Pain Radiates: No Aggravating Factor(s): Nothing Alleviating Factor(s): Nothing Associated Signs and Symptoms: Positive: Chest Pain - Additional Pertinent History Primary Care Physician: [id number] - Allergy/Home Medications Allergies/Adverse Reactions: Allergies Allergy/AdvReac Type Severity Reaction Status Date / Time No Known Allergies Allergy Verified 06/13/16 18:55 PMH/Surg Hx/FS Hx/Imm Hx Endocrine/Hematology History: Reports: Hx Diabetes Cardiovascular History: Reports: Hx Hypertension, Other Cardiovascular Problems/ Disorders - HLD Denies: Hx Pacemaker/ICD Respiratory History: Reports: Hx Chronic Obstructive Pulmonary Disease (COPD) GI History: Reports: Hx Gastroesophageal Reflux Disease History: Reports: Hx Kidney Stones Musculoskeletal History: Reports: Hx Arthritis Sensory History: Reports: Hx Contacts or Glasses, Hx Glaucoma, Hx Hearing Problem Denies: Hx Hearing Aid Opthamlomology History: Reports: Hx Contacts or Glasses, Hx Glaucoma Neurological History: Reports: Hx Headaches, Hx Migraine Psychiatric History: Reports: Hx Anxiety - possible, Hx Depression - possible Denies: Hx Panic Disorder - Surgical History Surgery Procedure, Year, and Place: APPENDECTOMY A CHILD, HYSTERECTOMY Infectious Disease History: No Infectious Disease History: Denies: Traveled Outside the [place] in Last 30 Days - Family History Known Family History: Positive: Cardiac Disease, Other - stroke - Social History Alcohol Use: None Hx Substance Use: No Substance Use Type: Reports: None Hx Tobacco Use: Yes Smoking Status (MU): Former Smoker Review of Systems Constitutional: Negative Eyes: Negative ENT: Negative Positive: Chest Pain - under right rib Respiratory: Negative Positive: Nausea Genitourinary: Negative Musculoskeletal: Negative Skin: Negative Neurological: Negative Psychological: Normal All Other Systems Reviewed And Are Negative: Yes Physical Exam Triage Information Reviewed: Yes Vital Signs On Initial Exam: Initial Vitals Temp Pulse Resp BP Pulse Ox 96.4 F 68 20 190/59 100 06/13/16 18:29 06/13/16 18:29 06/13/16 18:29 06/13/16 18:29 06/13/16 18:29 Vital Signs Reviewed: Yes Appearance: Positive: Well-Appearing, Pain Distress - mild discomfort Skin: Positive: Warm Head/Face: Positive: Normal Head/Face Inspection Eyes: Positive: ROBYN ENT: Positive: Hearing grossly normal Neck: Positive: Supple Respiratory/Lung Sounds: Positive: Clear to Auscultation - no cwt, Breath Sounds Present Cardiovascular: Positive: RRR Abdomen Description: Positive: Nontender, No Organomegaly, Soft Bowel Sounds: Positive: Present Musculoskeletal: Positive: Strength/ROM Intact Diagnostics - Vital Signs Vital Signs Temp Pulse Resp BP Pulse Ox 06/13/16 18:54 97.8 F 63 16 177/77 98 06/13/16 18:29 96.4 F 68 20 190/59 100 - Laboratory Result Diagrams: 06/13/16 20:08 06/13/16 20:08 Lab Statement: Any lab studies that have been ordered have been reviewed, and results considered in the medical decision making process. - Radiology CXR Xray Interpretation: No Acute Changes - IMPRESSION: Hyperinflated lung simons. No active cardiopulmonary disease is noted. Radiology Interpretation Completed By: Radiologist - Ultrasound No standard instances Ultrasound Interpretation: No Acute Changes - IMPRESSION: Partially contracted gallbladder with no evidence of cholelithiasis or biliary duct dilatation. Prominent pancreatic duct which may be sequela from prior pancreatitis. Ultrasound Interpretation Completed By: Radiologist - abdomen US - EKG 1836 Cardiac Rate: NL - 65 BPM EKG Interpretation: NSR @ 65 BPM, nonspecific ST-T abnormalities. Re-Evaluation - Re-Evaluation First Eval Re-Evaluation Time: 21:07 Change: Improved Comment: Pt is informed of results of imaging and lab studies. Chest Pain Course/Dx - Course Assessment/Plan: Rylee Méndez is an 81 yo female presenting to [facility] with 8/ 10 pain under her right rib for the past few days, with nausea today. 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 Her CXR suggested no active disease. Her abd US suggested ?. Her EKG showed nonspecific ST-T abnormalities. In the ED she was given tylenol and bactrim. Ater clinical examination and review of her imaging studies and lab work, she will be discharged home with UTI with appropriate instructions. - Chest Pain Differential Diagnosis/HQI/PQRI: Other: - UTI - Diagnoses Provider Diagnoses: UTI (urinary tract infection) Discharge - Discharge Plan Condition: Stable Disposition: HOME Prescriptions: Sulfamethox/Trimethoprim DS* [Bactrim DS 800/160 TAB*] 1 tab PO BID #14 tab Patient Education Materials: Urinary Tract Infection in Women (ED) Referrals: Marquise Rodriguez MD [Primary Care Provider] - 2 Days Additional Instructions: Please follow up with your primary care physician regarding your visit to the emergency department. Return to the emergency department with any new or recurring symptoms. The documentation as recorded by the sarah west Timothy accurately reflects the service I personally performed and the decisions made by me, Andrzej Leary MD.
[2016-06-13 20:15] LABS: Hematocrit 39 % (35-47); Hemoglobin 12.8 g/dl (12.0-16.0); Mean Corpuscular HGB Conc 32 g/dl (31-36); Mean Corpuscular Hemoglobin 29 pg (27-31); Mean Corpuscular Volume 88 fL (80-97); Mean Platelet Volume 9 um3 (7.4-10.4); Red Blood Count 4.47 10^6/ul (4.0-5.4); Red Cell Distribution Width 14 % (10.5-15); White Blood Count 13.4 10^3/ul (3.5-10.8)
--- NOTE | 2016-06-13 20:18 | RAD ---
Indication: Chest pain, rib pain. 2 views of the chest including dual energy PA views demonstrates hyperinflated lung simons. No pleural fluid, pneumonia or pneumothorax is noted. When compared to previous exam of January 16, 2015 no significant change is noted. IMPRESSION: Hyperinflated lung simons. No active cardiopulmonary disease is noted.
[2016-06-13] MEDS ORDERED: Acetaminophen TAB* 325 MG PO ONE (20:33)
[2016-06-13 20:34] LABS: Albumin 3.9 g/dL (3.2-5.2); BUN/Creatinine Ratio 17.5 (8-20); Calcium 9.5 mg/dL (8.6-10.3); EGFR Non-African American 51.3 (>60); Globulin 3.6 g/dL (2-4); Magnesium 1.9 mg/dL (1.9-2.7); Potassium 4.4 mmol/L (3.5-5.0); Total Bilirubin 0.3 mg/dL (0.2-1.0); Total Protein 7.5 g/dL (6.4-8.9)
[2016-06-13 20:50] LABS: Urine Bacteria 3+ (Absent); Urine Bilirubin Negative (Negative); Urine Glucose 1+(50 mg/dL) (Negative); Urine Nitrite Positive (Negative)
[2016-06-13] MEDS ORDERED: Sulfamethox/Trimethoprim DS 800/160* TAB PO ONE (20:56)
--- NOTE | 2016-06-13 22:48 | RAD ---
Indication: Right upper quadrant pain. Real-time sonography of the right upper quadrant was performed. The liver is normal in size. No focal lesions or intrahepatic ductal dilatation is noted. The gallbladder is partially contracted however no gallstones, pericholecystic fluid or wall thickening is identified. The common duct measures 5 mm. The right kidney measures 10.4 x 4.2 x 3.6 cm with no hydronephrosis. The pancreas demonstrates no evidence of mass. Small hypoechoic area adjacent to the pancreas is noted. This may represent a small peripancreatic lymph node.. Duct measures up to 3 mm and is prominent. The proximal aorta and inferior vena cava are unremarkable. IMPRESSION: Partially contracted gallbladder with no evidence of cholelithiasis or biliary duct dilatation. Prominent pancreatic duct which may be sequela from prior pancreatitis.
[2016-06-13 23:01] VITALS: BP 156/64
--- NOTE | 2016-06-15 07:04 | PN ---
Progress Note - Progress Note Note: E. coli grew from Urine Culture. Patient placed on Bactrim. Will await sensitivities. Nothing further at this time. Ewa Rios PA-C
== END 2016-06-13 23:05 | disposition home or self-care (01) ==
LOC: ED 18:26
DX: N39.0 Urinary tract infection, site not specified (principal); R10.11 Right upper quadrant pain; R07.9 Chest pain, unspecified; R11.0 Nausea
CPT/HCPCS: 36415; 71020; 76705; 80053; 81003; 81015; 83735; 84484; 85025; 87077; 87086; 87184; 87186; 93005; 99283; A9270-GY

== ENCOUNTER 2018-06-22 09:41 | Emergency (ER) | payer MEDICARE, BC ==
[2018-06-22] MEDS ORDERED: Ondansetron INJ* 2 MG/ML VIAL IV ONE (09:43)
[2018-06-22] MEDS ORDERED: NS 0.9% 1000 ML** 1,000 ML IV ONE (09:43)
[2018-06-22 10:27] LABS: Albumin 4.6 g/dL (3.2-5.2); Albumin/Globulin Ratio 1.2 (1-3); BUN/Creatinine Ratio 23.1 (8-20); C Reactive Protein 9.64 mg/L (<8.01); Calcium 9.7 mg/dL (8.6-10.3); EGFR Non-African American 33.9 (>60); Globulin 3.8 g/dL (2-4); Total Bilirubin 0.3 mg/dL (0.2-1.0); Total Protein 8.4 g/dL (6.4-8.9)
--- NOTE | 2018-06-22 10:36 | ED ---
Nausea/Vomiting/Diarrhea HPI - HPI Summary HPI Summary: Patient is an 83-year-old female with a history of 2 TIAs presenting to the ED with nausea, vomiting and diarrhea. She is asymptomatic on arrival. She states her symptoms began yesterday after eating dinner and remained throughout the evening. She states she became very weak and was unable to get out of bed and slid to the floor. After that of which she called her daughter to come pick her up and take her to the ED. Several hours later, she states she arrived to the ED, here now stating she is asymptomatic, denies any weakness, denies any nausea, vomiting, diarrhea. She is endorsing the diarrhea as soft, brown, non-malodorous in 10+ times overnight. She denies any antibiotic use, medication changes, eating anything abnormal other than eating several chocolate Easter eggs yesterday. She denies any fevers, sweats, however is endorsing some chills. She lives alone and is fairly independent. - History of Current Complaint Chief Complaint: EDNauseaVomitDiarrh Stated Complaint: GENERAL ILLNESS PER EMS Time Seen by Provider: 06/22/18 09:42 Hx Obtained From: Patient ?: No Onset/Duration: Sudden Onset Timing: Constant Severity Initially: Moderate Severity Currently: Moderate Pain Intensity: 0 Pain Scale Used: 0-10 Numeric Nausea/Vomiting Presence: Nauseated, Vomiting - x1 Vomiting Frequency: Every 15-60 minutes Nausea/Vomiting Duration: 0-12 hours Diarrhea Presence: No Diarrhea Frequency: Every 15-60 minutes Diarrhea Duration: 0-12 hours - Risk Factors Influenza Risk Factors: Negative Surgical Obstruction Risk Factor(s): Negative - Allergies/Home Medications Allergies/Adverse Reactions: Allergies Allergy/AdvReac Type Severity Reaction Status Date / Time albuterol Allergy Unknown Verified 06/22/18 09:44 Reaction Details Home Medications: Home Medications Rosuvastatin Calcium [Crestor] 5 mg PO DAILY 06/22/18 [History Confirmed ] metFORMIN* [Glucophage 500 MG TAB *] 500 mg PO BID WITH MEALS 06/22/18 [History Confirmed 06/22/18] PMH/Surg Hx/FS Hx/Imm Hx Previously Healthy: Yes Endocrine/Hematology History: Reports: Hx Diabetes Cardiovascular History: Reports: Hx Hypertension, Other Cardiovascular Problems/ Disorders - HLD Denies: Hx Pacemaker/ICD Respiratory History: Reports: Hx Chronic Obstructive Pulmonary Disease (COPD) GI History: Reports: Hx Gastroesophageal Reflux Disease History: Reports: Hx Kidney Stones Musculoskeletal History: Reports: Hx Arthritis Sensory History: Reports: Hx Contacts or Glasses, Hx Glaucoma, Hx Hearing Problem Denies: Hx Hearing Aid Opthamlomology History: Reports: Hx Contacts or Glasses, Hx Glaucoma Neurological History: Reports: Hx Headaches, Hx Migraine Psychiatric History: Reports: Hx Anxiety - possible, Hx Depression - possible Denies: Hx Panic Disorder - Surgical History Surgery Procedure, Year, and Place: APPENDECTOMY A CHILD, HYSTERECTOMY - Immunization History Hx Pertussis Vaccination: No Immunizations Up to Date: Yes Infectious Disease History: No Infectious Disease History: Denies: Traveled Outside the [place] in Last 30 Days - Family History Known Family History: Positive: Cardiac Disease, Other - stroke - Social History Occupation: Unemployed Lives: Alone Alcohol Use: None Hx Substance Use: No Substance Use Type: Reports: None Hx Tobacco Use: Yes Smoking Status (MU): Former Smoker Review of Systems Constitutional: Negative Negative: Fever, Chills, Fatigue, Skin Diaphoresis Negative: Palpitations, Chest Pain Negative: Shortness Of Breath, Cough Positive: Vomiting, Diarrhea, Nausea. Negative: Abdominal Pain Genitourinary: Negative Positive: no symptoms reported, see HPI Negative: Arthralgia, Myalgia Skin: Negative All Other Systems Reviewed And Are Negative: Yes Physical Exam Triage Information Reviewed: Yes Vital Signs On Initial Exam: Initial Vitals Temp Pulse Resp BP Pulse Ox 97.1 F 82 16 138/115 98 06/22/18 09:41 06/22/18 09:41 06/22/18 09:41 06/22/18 09:41 06/22/18 09:41 Vital Signs Reviewed: Yes Appearance: Positive: Well-Appearing, Well-Nourished Skin: Positive: Warm, Skin Color Reflects Adequate Perfusion Head/Face: Positive: Normal Head/Face Inspection Eyes: Positive: EOMI, Conjunctiva Clear Neck: Positive: Supple, No Lymphadenopathy Respiratory/Lung Sounds: Positive: Clear to Auscultation, Breath Sounds Present Cardiovascular: Positive: Normal, Pulses are Symmetrical in both Upper and Lower Extremities Abdomen Description: Positive: Nontender, Soft. Negative: CVA Tenderness (R), CVA Tenderness (L), Distended, Guarding Neurological: Positive: Sensory/Motor Intact, Alert, Oriented to Person Place, Time, Speech Normal Psychiatric: Positive: Normal, Affect/Mood Appropriate AVPU Assessment: Alert Diagnostics - Vital Signs Vital Signs Temp Pulse Resp BP Pulse Ox 06/22/18 09:41 97.1 F 82 16 138/115 98 - Laboratory Lab Results: Lab Results 06/22/18 06/22/18 Range/Units 09:52 09:52 Sodium 137 (135-145) mmol/L Potassium 5.0 (3.5-5.0) mmol/L Chloride 105 (101-111) mmol/L Carbon Dioxide 22 (22-32) mmol/L Anion Gap 10 (2-11) mmol/L BUN 34 H (6-24) mg/dL Creatinine 1.47 H (0.51-0.95) mg/dL Est GFR ( Amer) 41.0 (>60) Est GFR (Non-Af Amer) 33.9 (>60) BUN/Creatinine Ratio 23.1 H (8-20) Glucose 186 H (70-100) mg/dL Lactic Acid 1.7 (0.5-2.0) mmol/L Calcium 9.7 (8.6-10.3) mg/dL Magnesium 2.0 (1.9-2.7) mg/dL Total Bilirubin 0.30 (0.2-1.0) mg/dL AST 23 (13-39) U/L ALT 20 (7-52) U/L Alkaline Phosphatase 81 (34-104) U/L C-Reactive Protein 9.64 H (<8.01) mg/L Total Protein 8.4 (6.4-8.9) g/dL Albumin 4.6 (3.2-5.2) g/dL Globulin 3.8 (2-4) g/dL Albumin/Globulin Ratio 1.2 (1-3) Lipase 31 (11.0-82.0) U/L Result Diagrams: 06/22/18 09:52 06/22/18 09:52 Lab Statement: Any lab studies that have been ordered have been reviewed, and results considered in the medical decision making process. Naus/Vom/Diarrhea Course/Dx - Course Course Of Treatment: During the questioning the patient is evaluated for nausea , vomiting, diarrhea. She is a symptom at this time. She denies any abdominal pain. Vital signs are stable and patient appears well. She is nontoxic appearing and states she feels well. Labs are obtained and are WNL except for an elevated BUN, likely related to dehydration secondary to the diarrhea. She is given 1 L fluids. She is also given 4 mg IV Zofran. She states she slid to the floor, she denies any pain from this. She denies hitting her head or LOC. She denies any weakness, headache, memory loss or confusion. She is on Eliquis for 2 previous TIAs. Flu swab obtained and is negative. She is asymptomatic, discussed treatment options with the patient and she states she is able to be discharged at this time. She will follow-up closely with her PCP. - Differential Dx/Diagnosis Differential Diagnoses - Female: Other - Gastroenteritis, nausea vomiting, diarrhea, reaction to food Provider Diagnosis: Gastroenteritis Condition At Discharge: Stable Discharge - Sign-Out/Discharge Documenting (check all that apply): Patient Departure Patient Received Moderate/Deep Sedation with Procedure: No - Discharge Plan Condition: Stable Disposition: HOME Patient Education Materials: Gastroenteritis (ED) Referrals: Olamide Hubbard MD [Primary Care Provider] - Additional Instructions: Drink plenty of fluids Eat a bland diet at this time, including applesauce, bananas, rice, toast, chicken noodle soup for comfort If he develop any worsening symptoms, return to the ED All of your labs drawn today on today's visit, were within normal limits Take all medications as prescribed at home - Billing Disposition and Condition Condition: STABLE Disposition: Home
[2018-06-22 10:42] LABS: ABS Basophils 0 10^3/ul (0-0.2); ABS Eosinophils 0 10^3/ul (0-0.6); ABS Lymphocytes 0.5 10^3/ul (1.0-4.8); ABS Monocytes 0.8 10^3/ul (0-0.8); ABS Neutrophils 8.8 10^3/ul (1.5-7.7); ABS Nucleated RBC 0 10^3/ul; Eosinophil % 0.4 %; Hematocrit 44 % (33-41); Hemoglobin 14.8 g/dL (12.0-16.0); Lymphocyte % 4.8 %; Mean Corpuscular HGB Conc 34 g/dL (31-36); Mean Corpuscular Hemoglobin 30 pg (27-31); Mean Corpuscular Volume 91 fL (80-97); Mean Platelet Volume 8.8 fL (7.4-10.4); Nucleated Red Blood Cells % 0; Platelet Count 243 10^3/uL (150-450); Red Blood Count 4.86 10^6 /uL (3.70-4.87); Red Cell Distribution Width 14 % (10.5-15); White Blood Count 10.2 10^3/uL (3.5-10.8)
[2018-06-22 11:34] LABS: Influenza A Molecular NEGATIVE (Negative); Influenza B Molecular NEGATIVE (Negative)
[2018-06-22 11:55] VITALS: BP 133/52
== END 2018-06-22 11:54 | disposition home or self-care (01) ==
LOC: ED 09:41
DX: K52.9 Noninfective gastroenteritis and colitis, unspecified (principal); I10 Essential (primary) hypertension; E11.9 Type 2 diabetes mellitus without complications; E78.5 Hyperlipidemia, unspecified; J44.9 Chronic obstructive pulmonary disease, unspecified; K21.9 Gastro-esophageal reflux disease without esophagitis; Z88.8 Allergy status to other drugs, medicaments and biological substances; Z87.891 Personal history of nicotine dependence
CPT/HCPCS: 36415; 80053; 83605; 83690; 83735; 85025; 86140; 96361; 96374; 99283; J2405

== ENCOUNTER 2020-07-28 12:28 | Observation (INO) ==
[2020-07-28] MEDS ORDERED: NS 0.9% 1000 ml BAG 1,000 ML IV ONE (12:45)
[2020-07-28 13:00] LABS: ABS Basophils 0.1 10^3/ul (0-0.2); ABS Eosinophils 0.2 10^3/ul (0-0.6); ABS Lymphocytes 1.8 10^3/ul (1.0-4.8); ABS Monocytes 0.6 10^3/ul (0-0.8); ABS Neutrophils 7.6 10^3/ul (1.5-7.7); Eosinophil % 1.5 %; Hematocrit 38 % (35-47); Hemoglobin 12.7 g/dL (12.0-16.0); Lymphocyte % 17.6 %; Mean Corpuscular HGB Conc 33 g/dL (31-36); Mean Corpuscular Hemoglobin 31 pg (27-31); Mean Corpuscular Volume 92 fL (80-97); Platelet Count 238 10^3/uL (150-450); Red Blood Count 4.15 10^6 /uL (3.70-4.87); Red Cell Distribution Width 14 % (10-15); White Blood Count 10.3 10^3/uL (3.5-10.8)
[2020-07-28 13:13] LABS: INR 1.02 (0.82-1.09)
[2020-07-28 13:17] LABS: Albumin 3.9 g/dL (3.2-5.2); Calcium 9.1 mg/dL (8.6-10.3); Magnesium 1.8 mg/dL (1.9-2.7); Potassium 4.5 mmol/L (3.5-5.0); Total Bilirubin 0.3 mg/dL (0.2-1.0)
[2020-07-28 13:23] LABS: Albumin/Globulin Ratio 1.3 (1-3); EGFR African American 48.7 (>60); EGFR Non-African American 40.3 (>60); Total Protein 6.9 g/dL (6.4-8.9)
[2020-07-28 13:59] LABS: TSH Ultra Thyroid Stim Horm 1.23 mcIU/mL (0.34-5.60)
[2020-07-28] MEDS ORDERED: Magnesium Sulfate 2 gm BAG 2 GM/50 ML BAG IVPB ONE (15:20)
[2020-07-28] MEDS ORDERED: Ondansetron 4 mg VIAL 2 MG/ML 2 ml VIAL IV PRN (16:11)
[2020-07-28] MEDS ORDERED: Magnesium Hydroxide LIQ 30 ML UDC PO PRN (16:11)
[2020-07-28] MEDS ORDERED: Dextrose 50% Syringe 50 ml 25 GM/50 ML SYRINGE IV PUSH PRN (16:23)
[2020-07-28 17:51] LABS: Urine Appearance Cloudy; Urine Bilirubin Negative (Negative); Urine Blood Negative (Negative); Urine Color Yellow; Urine Glucose Negative (Negative); Urine Ketones Negative (Negative); Urine Nitrite Positive (Negative); Urine Protein Negative (Negative); Urine Specific Gravity 1.047 (1.002-1.030); Urine Urobilinogen Negative (Negative)
[2020-07-28] MEDS ORDERED: Enoxaparin 40 MG/0.4 ML SYR SUBCUT SCH (18:00)
[2020-07-28 18:11] LABS: Urine Bacteria 3+ (Absent); Urine Red Blood Cell 1+(3-5/hpf) (Absent); Urine Squamous Epithelial Cell Present (Absent); Urine White Blood Cell 1+(6-10/hpf) (Absent)
[2020-07-28] MEDS: NS 0.9% 1000 ml BAG 1,000 ML IV SCH (20:00)
[2020-07-28] MEDS ORDERED: cefTRIAXone 1 gm/50 mL NS BAG 1 GM/50 ML BAG IVPB SCH (20:00)
[2020-07-29 07:44] LABS: ABS Basophils 0.1 10^3/ul (0-0.2); ABS Eosinophils 0.1 10^3/ul (0-0.6); ABS Lymphocytes 2.6 10^3/ul (1.0-4.8); ABS Monocytes 1.2 10^3/ul (0-0.8); ABS Neutrophils 9.4 10^3/ul (1.5-7.7); Hematocrit 33 % (35-47); Hemoglobin 11.2 g/dL (12.0-16.0); Lymphocyte % 19.4 %; Mean Corpuscular HGB Conc 34 g/dL (31-36); Mean Corpuscular Hemoglobin 30 pg (27-31); Mean Corpuscular Volume 90 fL (80-97); Mean Platelet Volume 8.4 fL (7.4-10.4); Platelet Count 220 10^3/uL (150-450); Red Blood Count 3.67 10^6 /uL (3.70-4.87); Red Cell Distribution Width 14 % (10-15); White Blood Count 13.4 10^3/uL (3.5-10.8)
[2020-07-29 08:24] LABS: Calcium 8.4 mg/dL (8.6-10.3); EGFR African American 64.4 (>60); EGFR Non-African American 53.2 (>60); Magnesium 1.7 mg/dL (1.9-2.7); Potassium 3.9 mmol/L (3.5-5.0)
[2020-07-29] MEDS ORDERED: Magnesium Sulfate 2 gm BAG 2 GM/50 ML BAG IVPB ONE (09:10)
[2020-07-29] MEDS: NS 0.9% 1000 ml BAG 1,000 ML IV SCH (09:26)
[2020-07-29 15:18] VITALS: BP 116/57
== END 2020-07-29 14:40 | disposition home or self-care (01) ==
LOC: MEDTELE 12:28 → ED 12:28 → MEDTELE 18:51
PROVIDERS: ADMIT Internal Medicine; ATTEND Internal Medicine

== ENCOUNTER 2020-09-02 02:55 | Inpatient (IN) ==
[2020-09-02] MEDS: NS 0.9% 1000 ml BAG 1,000 ML IV ONE ×2 (04:06→09:22)
[2020-09-02 04:20] LABS: Hematocrit 40 % (35-47); Hemoglobin 13.1 g/dL (12.0-16.0); Mean Corpuscular HGB Conc 33 g/dL (31-36); Mean Corpuscular Hemoglobin 31 pg (27-31); Mean Corpuscular Volume 92 fL (80-97); Mean Platelet Volume 8.3 fL (7.4-10.4); Platelet Count 272 10^3/uL (150-450); Red Blood Count 4.28 10^6 /uL (3.70-4.87); Red Cell Distribution Width 15 % (10-15); White Blood Count 21.2 10^3/uL (3.5-10.8)
[2020-09-02 04:40] LABS: Albumin/Globulin Ratio 1.3 (1-3); C Reactive Protein 4.94 mg/L (<8.01); Calcium 9.2 mg/dL (8.6-10.3); EGFR Non-African American 37.2 (>60); Globulin 3.1 g/dL (2-4); Potassium 4.2 mmol/L (3.5-5.0); Total Bilirubin 0.3 mg/dL (0.2-1.0); Total Protein 7.1 g/dL (6.4-8.9)
[2020-09-02 05:25] LABS: ABS Basophils 0.1 10^3/ul (0-0.2); ABS Lymphocytes 0.6 10^3/ul (1.0-4.8); ABS Neutrophils 18.5 10^3/ul (1.5-7.7); Eosinophil % 0.2 %; Lymphocyte % 2.7 %
[2020-09-02] MEDS ORDERED: Piperacillin/Tazobac ADVAN 3.375 GM in NS 0.9% 100 ml BAG 100 ML IVPB ONE ×2 (08:42→08:45)
[2020-09-02] MEDS ORDERED: NS 0.9% 1000 ml BAG 1,000 ML IV ONE (08:44)
[2020-09-02 08:49] LABS: Urine Appearance Cloudy; Urine Bilirubin Negative (Negative); Urine Blood Negative (Negative); Urine Color Yellow; Urine Glucose Negative (Negative); Urine Ketones Negative (Negative); Urine Nitrite Negative (Negative); Urine Protein Negative (Negative); Urine Specific Gravity 1.019 (1.002-1.030); Urine Urobilinogen Negative (Negative)
[2020-09-02 08:58] LABS: Urine Bacteria 1+ (Absent); Urine Red Blood Cell 2+(6-10/hpf) (Absent); Urine Squamous Epithelial Cell Present (Absent); Urine White Blood Cell 1+(6-10/hpf) (Absent); Urine Yeast Present (Absent)
[2020-09-02] MEDS ORDERED: Zosyn per Pharmacy NOTE FOLLOW UP SCH (09:00)
[2020-09-02] MEDS ORDERED: Prochlorperazine 5 mg/ml 2 ml VIAL (10 mg) IV PRN (10:59)
[2020-09-02] MEDS ORDERED: NS 0.9% 1000 ml BAG 1,000 ML IV SCH (11:00)
[2020-09-02] MEDS: ZOSYN 3.375 GM Q8H per EXTENDED INFUSION IV SCH ×2 (12:25→22:09)
[2020-09-02] MEDS ORDERED: Al Hydrox/Mg Hydrox/Simet LIQ 30 ML UDC PO PRN (12:35)
[2020-09-02] MEDS: Heparin 5000 UNITS/ML 1 mL VIAL SUBCUT SCH ×2 (14:13→22:09)
[2020-09-03 04:09] LABS: ABS Eosinophils 0.3 10^3/ul (0-0.6); ABS Lymphocytes 2.6 10^3/ul (1.0-4.8); ABS Monocytes 0.8 10^3/ul (0-0.8); ABS Neutrophils 5.4 10^3/ul (1.5-7.7); Eosinophil % 3.1 %; Hematocrit 33 % (35-47); Lymphocyte % 28.8 %; Mean Corpuscular HGB Conc 34 g/dL (31-36); Mean Corpuscular Hemoglobin 31 pg (27-31); Mean Corpuscular Volume 92 fL (80-97); Mean Platelet Volume 8.2 fL (7.4-10.4); Platelet Count 226 10^3/uL (150-450); Red Blood Count 3.53 10^6 /uL (3.70-4.87); Red Cell Distribution Width 15 % (10-15); White Blood Count 9.2 10^3/uL (3.5-10.8)
[2020-09-03 04:23] LABS: Calcium 8.5 mg/dL (8.6-10.3); EGFR African American 63.6 (>60); EGFR Non-African American 52.6 (>60); Potassium 4.2 mmol/L (3.5-5.0)
[2020-09-03] MEDS: ZOSYN 3.375 GM Q8H per EXTENDED INFUSION IV SCH ×3 (05:07→20:53)
[2020-09-03] MEDS: Heparin 5000 UNITS/ML 1 mL VIAL SUBCUT SCH ×3 (05:12→20:53)
[2020-09-03] MEDS ORDERED: Dextrose 50% Syringe 50 ml 25 GM/50 ML SYRINGE IV PUSH PRN (14:25)
[2020-09-04] MEDS: ZOSYN 3.375 GM Q8H per EXTENDED INFUSION IV SCH ×3 (05:54→22:24)
[2020-09-04] MEDS: Heparin 5000 UNITS/ML 1 mL VIAL SUBCUT SCH ×3 (05:54→22:43)
[2020-09-04 07:11] LABS: ABS Basophils 0.1 10^3/ul (0-0.2); ABS Eosinophils 0.4 10^3/ul (0-0.6); ABS Lymphocytes 3.1 10^3/ul (1.0-4.8); ABS Monocytes 0.8 10^3/ul (0-0.8); ABS Neutrophils 5.6 10^3/ul (1.5-7.7); Eosinophil % 4.1 %; Hematocrit 37 % (35-47); Hemoglobin 12.1 g/dL (12.0-16.0); Lymphocyte % 30.7 %; Mean Corpuscular HGB Conc 33 g/dL (31-36); Mean Corpuscular Hemoglobin 31 pg (27-31); Mean Corpuscular Volume 94 fL (80-97); Mean Platelet Volume 8.4 fL (7.4-10.4); Nucleated Red Blood Cells % 0.1; Platelet Count 228 10^3/uL (150-450); Red Cell Distribution Width 15 % (10-15)
[2020-09-04 07:40] LABS: Calcium 8.8 mg/dL (8.6-10.3); Potassium 4.6 mmol/L (3.5-5.0)
[2020-09-04 07:45] LABS: EGFR Non-African American 47.1 (>60)
[2020-09-05] MEDS: ZOSYN 3.375 GM Q8H per EXTENDED INFUSION IV SCH ×3 (05:18→21:45)
[2020-09-05] MEDS: Heparin 5000 UNITS/ML 1 mL VIAL SUBCUT SCH ×3 (05:24→21:45)
[2020-09-05 06:01] LABS: ABS Eosinophils 0.4 10^3/ul (0-0.6); ABS Lymphocytes 2.4 10^3/ul (1.0-4.8); ABS Monocytes 0.9 10^3/ul (0-0.8); ABS Neutrophils 5.3 10^3/ul (1.5-7.7); Eosinophil % 4.3 %; Hematocrit 37 % (35-47); Hemoglobin 12.1 g/dL (12.0-16.0); Lymphocyte % 26.4 %; Mean Corpuscular HGB Conc 33 g/dL (31-36); Mean Corpuscular Hemoglobin 31 pg (27-31); Mean Corpuscular Volume 93 fL (80-97); Mean Platelet Volume 7.9 fL (7.4-10.4); Platelet Count 263 10^3/uL (150-450); Red Blood Count 3.98 10^6 /uL (3.70-4.87); Red Cell Distribution Width 15 % (10-15); White Blood Count 9.1 10^3/uL (3.5-10.8)
[2020-09-05 06:20] LABS: Calcium 9.2 mg/dL (8.6-10.3); EGFR African American 64.4 (>60); EGFR Non-African American 53.2 (>60); Potassium 4.1 mmol/L (3.5-5.0)
[2020-09-06] MEDS: Heparin 5000 UNITS/ML 1 mL VIAL SUBCUT SCH ×2 (06:03→12:28)
[2020-09-06] MEDS ORDERED: Amoxicillin/Clavul 875/125 TAB (Augmentin 875 tab) PO SCH (09:00)
[2020-09-06 12:36] VITALS: BP 152/55
== END 2020-09-06 13:25 | DRG 391 ==
LOC: MED 02:55 → ED 02:55 → MED 17:10
PROVIDERS: ADMIT Internal Medicine; ATTEND Internal Medicine

== ENCOUNTER 2021-09-02 17:17 | Inpatient (IN) ==
[2021-09-02 19:02] LABS: ABS Basophils 0.1 10^3/ul (0-0.2); ABS Eosinophils 0.2 10^3/ul (0-0.6); ABS Lymphocytes 2.3 10^3/ul (1.0-4.8); ABS Monocytes 0.9 10^3/ul (0-0.8); ABS Neutrophils 6.5 10^3/ul (1.5-7.7); Eosinophil % 1.7 %; Hematocrit 39 % (35-47); Hemoglobin 12.6 g/dL (12.0-16.0); Lymphocyte % 23.5 %; Mean Corpuscular HGB Conc 32 g/dL (31-36); Mean Corpuscular Hemoglobin 29 pg (27-31); Mean Corpuscular Volume 91 fL (80-97); Mean Platelet Volume 8.7 fL (7.4-10.4); Platelet Count 244 10^3/uL (150-450); Red Blood Count 4.31 10^6 /uL (3.70-4.87); Red Cell Distribution Width 14 % (10-15)
[2021-09-02 19:24] LABS: High Sens Troponin Baseline 159 pg/mL (<15)
[2021-09-02 19:28] LABS: ALT 13 U/L (7-52); AST 16 U/L (13-39); Acetaminophen < 15 mcg/mL; Albumin 4.1 g/dL (3.2-5.2); Albumin/Globulin Ratio 1.3 (1-3); Alcohol, S < 13 mg/dL (<13); Alkaline Phosphatase 63 U/L (35-149); Anion Gap 7 mmol/L (2-11); Blood Urea Nitrogen 19 mg/dL (6-24); CO2 Carbon Dioxide 28 mmol/L (22-32); Calcium 9.9 mg/dL (8.6-10.3); Chloride 105 mmol/L (101-111); Creatine Kinase 45 U/L (10-223); Globulin 3.1 g/dL (2-4); Glucose 97 mg/dL (70-100); Magnesium 1.8 mg/dL (1.9-2.7); Potassium 4.8 mmol/L (3.5-5.0); Sodium 140 mmol/L (135-145); Total Protein 7.2 g/dL (6.4-8.9); eGFR CKD-EPI 46.6 (>60)
[2021-09-02 19:40] LABS: TSH Ultra Thyroid Stim Horm 0.56 mcIU/mL (0.34-5.60)
[2021-09-02 20:54] LABS: Urine Appearance Cloudy; Urine Bilirubin Negative (Negative); Urine Blood 1+ (Negative); Urine Color Yellow; Urine Glucose Negative (Negative); Urine Ketones Trace (Negative); Urine Nitrite Positive (Negative); Urine Protein Negative (Negative); Urine Specific Gravity 1.013 (1.002-1.030); Urine Urobilinogen Negative (Negative)
[2021-09-02 21:05] LABS: High Sensitivity Troponin 1 Hr 154 pg/mL (<15)
[2021-09-02] MEDS ORDERED: cefTRIAXone 1 gm/50 mL D5W 1 GM/50 ML BAG IV ONE (21:11)
[2021-09-02 21:23] LABS: Urine Bacteria 3+ (Absent); Urine Red Blood Cell 1+(3-5/hpf) (Absent); Urine Squamous Epithelial Cell Present (Absent); Urine White Blood Cell Trace(0-5/hpf) (Absent)
[2021-09-02] MEDS ORDERED: Ondansetron 4 mg VIAL 2 MG/ML 2 ml VIAL IV PRN (22:01)
[2021-09-03] MEDS ORDERED: Dextrose 50% Syringe 50 ml 25 GM/50 ML SYRINGE IV PUSH PRN (00:19)
[2021-09-03] MEDS ORDERED: Enoxaparin 40 MG/0.4 ML SYR SUBCUT SCH (01:00)
[2021-09-03 06:38] LABS: ABS Eosinophils 0.2 10^3/ul (0-0.6); ABS Lymphocytes 2.1 10^3/ul (1.0-4.8); ABS Monocytes 0.7 10^3/ul (0-0.8); ABS Neutrophils 4.9 10^3/ul (1.5-7.7); Hematocrit 38 % (35-47); Hemoglobin 12.5 g/dL (12.0-16.0); Lymphocyte % 25.9 %; Mean Corpuscular HGB Conc 33 g/dL (31-36); Mean Corpuscular Hemoglobin 30 pg (27-31); Mean Corpuscular Volume 91 fL (80-97); Mean Platelet Volume 8.6 fL (7.4-10.4); Platelet Count 229 10^3/uL (150-450); Red Blood Count 4.16 10^6 /uL (3.70-4.87); Red Cell Distribution Width 14 % (10-15)
[2021-09-03 07:03] LABS: Calcium 9.8 mg/dL (8.6-10.3); Potassium 4.1 mmol/L (3.5-5.0); eGFR CKD-EPI 53.2 (>60)
[2021-09-03] MEDS: Enoxaparin 30 MG/0.3 ML SYR SUBCUT SCH (09:25)
[2021-09-03] MEDS: Erythromycin OPTH OINT APPLIC OINT RIGHT EYE SCH ×3 (10:35→20:23)
[2021-09-03] MEDS: prednisoLONE 1% OPHTH.SUSP 5 ML OPHTH.SUSP RIGHT EYE SCH (10:35)
[2021-09-03] MEDS: cefTRIAXone 1 gm/50 mL D5W 1 GM/50 ML BAG IV SCH (20:18)
[2021-09-04] MEDS: prednisoLONE 1% OPHTH.SUSP 5 ML OPHTH.SUSP RIGHT EYE SCH (09:07)
[2021-09-04] MEDS: Enoxaparin 30 MG/0.3 ML SYR SUBCUT SCH (09:12)
[2021-09-04] MEDS: Erythromycin OPTH OINT APPLIC OINT RIGHT EYE SCH ×3 (09:13→21:25)
[2021-09-04] MEDS: cefTRIAXone 1 gm/50 mL D5W 1 GM/50 ML BAG IV SCH (21:24)
[2021-09-05] MEDS: prednisoLONE 1% OPHTH.SUSP 5 ML OPHTH.SUSP RIGHT EYE SCH (09:37)
[2021-09-05] MEDS: Enoxaparin 30 MG/0.3 ML SYR SUBCUT SCH (09:37)
[2021-09-05 16:26] LABS: Rapid COVID-19 Molecular Undetected (Undetected)
[2021-09-05] MEDS: cefTRIAXone 1 gm/50 mL D5W 1 GM/50 ML BAG IV SCH (20:48)
[2021-09-05] MEDS: Erythromycin OPTH OINT APPLIC OINT RIGHT EYE SCH (20:49)
[2021-09-05] MEDS ORDERED: Senna TAB 8.6 mg TAB PO PRN (21:30)
[2021-09-05] MEDS ORDERED: Magnesium Hydroxide LIQ 30 ML UDC PO PRN (21:30)
[2021-09-06] MEDS: Enoxaparin 30 MG/0.3 ML SYR SUBCUT SCH (09:49)
[2021-09-06] MEDS: prednisoLONE 1% OPHTH.SUSP 5 ML OPHTH.SUSP RIGHT EYE SCH (09:50)
[2021-09-06 11:59] VITALS: BP 145/52
[2021-09-06] MEDS ORDERED: cefTRIAXone 1 gm/50 mL D5W 1 GM/50 ML BAG IV ONE (12:00)
== END 2021-09-06 13:35 | DRG 690 ==
LOC: EDHOLD 17:17 → ED 17:17 → SUATTDRO 22:01 → MED 09-03 00:12 → SUATTDRO 09-03 16:00
PROVIDERS: ADMIT Internal Medicine; ATTEND Internal Medicine

== ENCOUNTER 2022-09-23 06:23 | Observation (INO) ==
[2022-09-23] MEDS ORDERED: Lactated Ringers 1000 ml BAG 1,000 ML IV ONE ×2 (06:47→11:05)
[2022-09-23 07:00] LABS: ABS Basophils 0.1 10^3/uL (0.0-0.1); ABS Eosinophils 0.3 10^3/uL (0.0-0.5); ABS Lymphocytes 1.8 10^3/uL (1.0-4.8); ABS Monocytes 0.8 10^3/uL (0.0-0.9); ABS Neutrophils 9.4 10^3/uL (1.5-7.6); Eosinophil % 2.3 %; Hematocrit 36.8 % (35-45); Hemoglobin 12.2 g/dL (11.5-14.3); Lymphocyte % 14.9 %; Mean Corpuscular Hemoglobin 29.7 pg (27-33); Mean Corpuscular Hgb Conc 33.1 g/dL (31-36); Mean Corpuscular Volume 89.7 fL (80-97); Mean Platelet Volume 8.4 fL (7.5-11.2); Platelet Count 279 10^3/uL (150-450); Red Cell Distribution Width 14.3 % (12-17); White Blood Count 12.4 10^3/uL (3.8-11.8)
[2022-09-23 07:09] LABS: Albumin 3.9 g/dL (3.2-5.2); Albumin/Globulin Ratio 1.2 (1-3); C Reactive Protein 1.2 mg/L (<8.01); Calcium 9.3 mg/dL (8.6-10.3); Creatinine, Serum 1.58 mg/dL (0.51-0.95); Globulin 3.3 g/dL (2-4); Potassium 4.7 mmol/L (3.5-5.0); Total Bilirubin 0.3 mg/dL (0.2-1.0); Total Protein 7.2 g/dL (6.4-8.9); eGFR CKD-EPI 31.3 (>60)
[2022-09-23 07:16] LABS: Magnesium 1.9 mg/dL (1.9-2.7)
[2022-09-23] MEDS ORDERED: Iodixanol (CONTRAST) 320 MG/ML 100 ML SDV IV ONE (07:34)
[2022-09-23 08:39] LABS: High Sensitivity Troponin 1 Hr 5 pg/mL (<15)
[2022-09-23 08:46] LABS: INR 0.98 (0.88-1.18)
[2022-09-23 10:35] LABS: Urine Appearance Cloudy; Urine Bilirubin Negative (Negative); Urine Blood Negative (Negative); Urine Color Yellow; Urine Glucose Negative (Negative); Urine Ketones Negative (Negative); Urine Nitrite Positive (Negative); Urine Protein Negative (Negative); Urine Specific Gravity 1.031 (1.002-1.030); Urine Urobilinogen Negative (Negative)
[2022-09-23 10:51] LABS: Urine Bacteria 3+ (Absent); Urine Red Blood Cell Trace(0-2/hpf) (Absent); Urine Squamous Epithelial Cell Present (Absent); Urine White Blood Cell Trace(0-5/hpf) (Absent)
[2022-09-23] MEDS ORDERED: hydrALAZINE 20 mg/ml 1 ML Vial IV IV SLOW PU PRN (12:48)
[2022-09-23] MEDS ORDERED: Ondansetron 4 mg VIAL 2 MG/ML 2 ml VIAL IV PRN (12:49)
[2022-09-23] MEDS ORDERED: Dextrose 50% Syringe 50 ml 25 GM/50 ML SYRINGE IV PUSH PRN (12:50)
[2022-09-24 06:50] LABS: ABS Basophils 0.1 10^3/uL (0.0-0.1); ABS Eosinophils 0.3 10^3/uL (0.0-0.5); ABS Monocytes 0.8 10^3/uL (0.0-0.9); ABS Neutrophils 4.7 10^3/uL (1.5-7.6); ABS Nucleated RBC 0.01 10^3/ul; Eosinophil % 4.1 %; Hematocrit 36.2 % (35-45); Hemoglobin 12.2 g/dL (11.5-14.3); Mean Corpuscular Hemoglobin 30.1 pg (27-33); Mean Corpuscular Hgb Conc 33.9 g/dL (31-36); Mean Corpuscular Volume 88.8 fL (80-97); Mean Platelet Volume 8.2 fL (7.5-11.2); Nucleated Red Blood Cells % 0.1 /100 WBC (0.0-0.4); Platelet Count 278 10^3/uL (150-450); Red Blood Count 4.07 10^6/uL (3.63-4.92); Red Cell Distribution Width 14.6 % (12-17); White Blood Count 7.9 10^3/uL (3.8-11.8)
[2022-09-24 07:03] LABS: Calcium 9.7 mg/dL (8.6-10.3); Creatinine, Serum 1.24 mg/dL (0.51-0.95); eGFR CKD-EPI 41.9 (>60)
[2022-09-24] MEDS: Enoxaparin 40 MG/0.4 ML SYR SUBCUT SCH (20:47)
[2022-09-25] MEDS: Enoxaparin 40 MG/0.4 ML SYR SUBCUT SCH (22:03)
[2022-09-26] MEDS ORDERED: Magnesium Hydroxide LIQ 30 ML UDC PO ONE (12:11)
[2022-09-26] MEDS ORDERED: Mineral Oil ENEMA 118 ML/BOTTLE BOTTLE PR ONE (13:00)
[2022-09-26 14:26] VITALS: BP 168/76
== END 2022-09-26 16:00 ==
LOC: ED 06:23 → EDHOLD 06:23 → SUATTDRO 12:04 → MED 16:37
PROVIDERS: ADMIT Internal Medicine; ATTEND Internal Medicine